=== PATIENT | female | born 1940 | race Asian ===

== ENCOUNTER 2017-06-17 10:46 | Outpatient (CLI) | payer MEDICARE, OTHER ==
--- NOTE | 2017-06-20 16:06 | Mammography Report ---
DIGITAL SCREENING MAMMOGRAM: 06/17/2017 CLINICAL INDICATION: A 76-year-old with history of late childbearing, for screening. COMPARISON: 08/2014, 03/2013, 01/2012, 01/2011, 11/2009. TECHNIQUE: Routine CC and MLO projections were obtained of the breasts. FINDINGS: The breasts again demonstrate heterogeneously dense fibroglandular parenchyma bilaterally. Coarse and punctate, typically benign calcifications are present. No suspicious masses, clustered microcalcifications, or regions of architectural distortion are identified. IMPRESSION: BENIGN FINDINGS. RECOMMENDATION: ROUTINE ANNUAL SCREENING UNLESS OTHERWISE CLINICALLY INDICATED. BIRADS CATEGORY 2-BENIGN FINDINGS. STANDARD QUALIFYING STATEMENTS: 1. This examination was reviewed with the aid of Computer-Aided Detection (CAD). 2. A negative or benign imaging report should not delay biopsy if clinically suspicious findings are present. Consider surgical consultation if warranted. More than 5% of cancers are not identified by imaging. 3. Dense breasts may obscure an underlying neoplasm. TD: 06/20/2017 16:05
== END 2017-06-17 10:47 | disposition home or self-care (01) ==
LOC: DI.N 10:46
PROVIDERS: ATTEND Family Medicine
DX: Z12.31 Encounter for screening mammogram for malignant neoplasm of breast (principal)
CPT/HCPCS: 77067

== ENCOUNTER 2017-12-29 09:34 | Outpatient (CLI) | payer MEDICARE, OTHER ==
--- NOTE | 2018-01-02 08:35 | DEXA Report ---
Reason: BONE DISEASE Procedure Date: 12/29/2017 Accession Number: [id number] / [id number] Procedure: DEX - Dexa Spine and/or Hip CPT Code: FULL RESULT: EXAM: Dexa Spine and/or Hip DATE: 12/29/2017 10:26 AM CLINICAL HISTORY: BONE DISEASE TECHNIQUE: Dual energy x-ray absorptiometry (DXA) was performed on a 3Funnel System. Regions measured are the AP Spine, femoral neck, and if needed forearm. COMPARISON: None. In accordance with the International Society for Clinical Densitometry (ISCD) guidelines, data from previous exams may be reanalyzed using current recommendations and techniques. This is done to allow a more accurate basis for comparison with the current study. FINDINGS: The data for the lumbar spine is as follows: BMD (g/cm/cm) T-SCORE Z-SCORE REGION L1 0.942 -1.6 0.8 L2 0.932 -2.2 0.1 L3 0.962 -2.0 0.3 L4 1.204 0.0 2.4 TOTAL 1.024 -1.3 1.0 NOTE: All evaluable vertebrae are used for classification The data for the hip is as follows: BMD (g/cm/cm) T-SCORE Z-SCORE REGION Neck 0.762 -2.0 0.4 TOTAL 0.847 -1.3 1.0 NOTE: The femoral neck or total proximal femur, whichever is lowest, is used for classification. IMPRESSION: THE WHO CLASSIFICATION BASED ON THE INTERNATIONAL REFERENCE STANDARD IS OSTEOPENIA. THE FRACTURE RISK IS INCREASED. RECOMMENDATION: Patients with diagnosis of osteoporosis or osteopenia should have regular bone mineral density assessment. For those eligible for Medicare, routine testing is allowed once every 2 years. Testing frequency can be increased for patients who have rapidly progressing disease or for those who are receiving medical therapy to restore bone mass. COMMENT: World Health Organization (WHO) definitions for osteoporosis and osteopenia: NORMAL BMD: T-score at -1.0 or higher, fracture risk is low OSTEOPENIA BMD: T-score between -1.0 and -2.5, fracture risk is increased. OSTEOPOROSIS BMD: T-score at -2.5 or lower, fracture risk is high. National Osteoporosis Foundation recommends: 1. Obtain adequate dietary calcium (at least 1200 mg per day) and vitamin D (400-800 international units per day). 2. Participate, as appropriate, in regular weightbearing and muscle-strengthening exercise. 3. Avoid tobacco use and reduce alcohol and caffeine intake. 4. For more detailed information see the website at www.NOF.org.
== END 2017-12-29 09:35 | disposition home or self-care (01) ==
LOC: DI 09:34
PROVIDERS: ATTEND Physician Assistant Medical
DX: M85.89 Other specified disorders of bone density and structure, multiple sites (principal)
CPT/HCPCS: 77080

== ENCOUNTER 2018-07-25 09:14 | Outpatient (CLI) | payer MEDICARE, OTHER ==
--- NOTE | 2018-07-26 08:45 | Mammography Report ---
Reason: SCREENING MAMMOGRAM FOR BREAST CANCER Procedure Date: 07/25/2018 Accession Number: [id number] / [id number] Procedure: MGN - Screening Mammo Dig Bilat CPT Code: FULL RESULT: EXAM: Screening Mammo Dig Bilat DATE: 07/25/2018 9:35 AM CLINICAL HISTORY: Screening encounter. History of late childbearing. TECHNIQUE: (B) - Bilateral CC and MLO views were obtained. COMPARISON: 06/17/2017 through 03/09/2013. PARENCHYMAL PATTERN: (D) - The breast(s) demonstrate(s) heterogeneously dense fibroglandular parenchyma. FINDINGS: There are coarse typically benign calcifications and typically benign vascular calcifications. There are no suspicious masses, calcifications, or areas of distortion. IMPRESSION: Benign findings. BI-RADS category 2. RECOMMENDATION: (ANNUAL) - Recommend routine annual screening mammography. BI-RADS CATEGORY: (2) - Benign Findings. STANDARD QUALIFYING STATEMENTS: 1. This examination was not reviewed with the aid of Computer-Aided Detection (CAD). 2. A negative or benign imaging report should not preclude biopsy if clinically suspicious findings are present. 3. Dense breasts may obscure an underlying neoplasm. 4. This examination was reviewed without the aid of 3D breast imaging (tomosynthesis).
== END 2018-07-25 09:15 | disposition home or self-care (01) ==
LOC: DI.N 09:14
PROVIDERS: ATTEND Family Medicine
DX: Z12.31 Encounter for screening mammogram for malignant neoplasm of breast (principal)
CPT/HCPCS: 77067

== ENCOUNTER 2018-08-23 08:00 | Outpatient (CLI) | payer MEDICARE, OTHER | END 2018-08-23 23:59 | disposition home or self-care (01) | LOC: LAB.R 08:00 | PROVIDERS: ATTEND Physician Assistant Medical | DX: N39.0 Urinary tract infection, site not specified (principal) | CPT/HCPCS: 87077; 87086; 87181 ==

== ENCOUNTER 2019-09-24 07:00 | Outpatient (CLI) | payer MEDICARE, OTHER | END 2019-09-24 23:59 | disposition home or self-care (01) | LOC: LAB.R 07:00 | PROVIDERS: ATTEND Physician Assistant Medical | DX: N39.0 Urinary tract infection, site not specified (principal) | CPT/HCPCS: 87086 ==

== ENCOUNTER 2019-10-23 12:31 | Outpatient (CLI) | payer MEDICARE, OTHER ==
--- NOTE | 2019-10-24 09:13 | Mammography Report ---
BILATERAL DIGITAL SCREENING MAMMOGRAM 3D/2D: 10/23/2019 CLINICAL: Routine screening. Comparison is made to exams dated: 06/17/2017 mammogram, 07/25/2018 mammogram, and 08/13/2014 mammogram - [facility]. The tissue of both breasts is heterogeneously dense. This may lower the sensitivity of mammography. No significant masses, calcifications, or other findings are seen in either breast. There has been no significant interval change. IMPRESSION: NEGATIVE There is no mammographic evidence of malignancy. A 1 year screening mammogram is recommended. This exam was interpreted at Station ID: [id number]. NOTE: For mammograms, a report in lay terms will be sent to the patient. Approximately 15% of breast malignancies will not be visualized mammographically. In the management of a palpable breast mass, a negative mammogram must not discourage biopsy of a clinically suspicious lesion. Electronically Signed By: Maria T aiken/tano:10/23/2019 18:10:18 ACR BI-RADS Category 1: Negative 3341F PARENCHYMAL PATTERN: (D) - The breast(s) demonstrate(s) heterogeneously dense fibroglandular nneka bowers. BI-RADS CATEGORY: (1) - 1 RECOMMENDATION: (ANNUAL) - Recommend routine annual screening mammography. [id number] 1 year screening LATERALITY: (B)
== END 2019-10-23 12:32 | disposition home or self-care (01) ==
LOC: DI 12:31
DX: Z12.31 Encounter for screening mammogram for malignant neoplasm of breast (principal)
CPT/HCPCS: 77063; 77067

== ENCOUNTER 2020-02-29 09:15 | Outpatient (CLI) | payer MEDICARE, OTHER ==
[2020-02-29 13:57] LABS: BILIRUBIN,URINE NEGATIVE (NEGATIVE); GLUCOSE, URINE (UA) NEGATIVE (NEGATIVE); KETONES,URINE (UA) NEGATIVE (NEGATIVE); LEUKOCYTE ESTERASE, URINE MODERATE (NEGATIVE); NITRITE,URINE NEGATIVE (NEGATIVE); OCCULT BLOOD,URINE SMALL (NEGATIVE); PH,URINE 6.5 PH (5.0-7.5); PROTEIN,URINE NEGATIVE (NEGATIVE); UROBILINOGEN,URINE 0.2 (NORMAL) E.U./dL (NORMAL)
[2020-02-29 14:00] LABS: CLARITY,URINE HAZY (CLEAR)
[2020-02-29 14:25] LABS: BACTERIA,URINE Few /HPF (None Seen); MUCUS,URINE Few Strands; RBC,URINE 0-5 /HPF (0-5); SQUAMOUS EPITHELIAL CELL,UR FEW Squamous (<= Few)
== END 2020-02-29 23:59 | disposition home or self-care (01) ==
LOC: LAB.R 09:15
PROVIDERS: ATTEND Nurse Practitioner
DX: N30.00 Acute cystitis without hematuria (principal)
CPT/HCPCS: 81001; 81003; 87077; 87086; 87181

== ENCOUNTER 2020-03-27 09:30 | Outpatient (CLI) | payer MEDICARE, OTHER ==
[2020-03-27 15:19] LABS: LEUKOCYTE ESTERASE, URINE MODERATE (NEGATIVE); OCCULT BLOOD,URINE MODERATE (NEGATIVE)
[2020-03-27 16:09] LABS: CLARITY,URINE HAZY (CLEAR)
[2020-03-27 16:10] LABS: BILIRUBIN,URINE NEGATIVE (NEGATIVE); ICTOTEST,URINE NEGATIVE
[2020-03-27 16:11] LABS: AMORPHOUS SEDIMENT,UR Few /LPF; BACTERIA,URINE Rare /HPF (None Seen); SQUAMOUS EPITHELIAL CELL,UR RARE Squamous (<= Few)
== END 2020-03-27 23:59 ==
LOC: LAB.R 09:30
PROVIDERS: ATTEND Family Medicine
DX: N30.00 Acute cystitis without hematuria (principal)
CPT/HCPCS: 81001; 87086

== ENCOUNTER 2020-08-28 09:47 | Outpatient (CLI) | payer MEDICARE, OTHER ==
[2020-08-28 11:56] LABS: CALCIUM 9.5 mg/dL (8.5-10.3); CREATININE 0.6 mg/dL (0.4-1.0); POTASSIUM 3.7 mmol/L (3.5-5.0)
[2020-08-28 12:15] LABS: CREATININE,URINE 160.1 mg/dL; ESTIMATED AVERAGE GLUCOSE 123 mg/dL (70-100); HEMOGLOBIN A1c% 5.9 % (4.27-6.07); MICROALBUM/CREATININE RATIO,UR 46.2 ug/mg (<30.0); MICROALBUMIN,URINE 7.4 mg/dL (0-300.0)
== END 2020-08-28 09:48 | disposition home or self-care (01) ==
LOC: LAB.N 09:47
PROVIDERS: ATTEND Internal Medicine
DX: I10 Essential (primary) hypertension (principal); R73.03 Prediabetes
CPT/HCPCS: 36415; 80048; 82043; 82570; 83036

== ENCOUNTER 2020-09-05 08:00 | Outpatient (CLI) | payer MEDICARE, OTHER | END 2020-09-05 23:59 | disposition home or self-care (01) | LOC: LAB.N 08:00 | PROVIDERS: ATTEND Family Medicine | DX: N39.0 Urinary tract infection, site not specified (principal) | CPT/HCPCS: 87086 ==

== ENCOUNTER 2021-02-20 08:37 | Outpatient (CLI) | payer MEDICARE, OTHER ==
--- NOTE | 2021-02-23 15:27 | Mammography Report ---
BILATERAL DIGITAL SCREENING MAMMOGRAM 3D/2D: 02/20/2021 CLINICAL: Routine screening. Comparison is made to exams dated: 10/23/2019 mammogram, 07/25/2018 mammogram, and 06/17/2017 mammogram - [facility]. The tissue of both breasts is heterogeneously dense. This may lower the sensitivity of mammography. No significant masses, calcifications, or other findings are seen in either breast. There has been no significant interval change. IMPRESSION: NEGATIVE There is no mammographic evidence of malignancy. A 1 year screening mammogram is recommended. This exam was interpreted at Station ID: [id number]. NOTE: For mammograms, a report in lay terms will be sent to the patient. Approximately 15% of breast malignancies will not be visualized mammographically. In the management of a palpable breast mass, a negative mammogram must not discourage biopsy of a clinically suspicious lesion. Electronically Signed By: Raphael Baugh M.D. ar/[email or web address]:02/20/2021 10:04:23 ACR BI-RADS Category 1: Negative 3341F PARENCHYMAL PATTERN: (D) - The breast(s) demonstrate(s) heterogeneously dense fibroglandular nneka bowers. BI-RADS CATEGORY: (1) - 1 RECOMMENDATION: (ANNUAL) - Recommend routine annual screening mammography. [id number] 1 year screening LATERALITY: (B)
== END 2021-02-20 08:38 | disposition home or self-care (01) ==
LOC: DI 08:37
PROVIDERS: ATTEND Internal Medicine
DX: Z12.31 Encounter for screening mammogram for malignant neoplasm of breast (principal)

== ENCOUNTER 2021-02-20 08:40 | Outpatient (CLI) | payer MEDICARE, OTHER ==
--- NOTE | 2021-02-20 11:30 | DEXA Report ---
PROCEDURE: Dexa Spine and/or Hip INDICATIONS: OSTEOPOROSIS TECHNIQUE: Dual energy x-ray absorptiometry (DXA) was performed on a [employer] System. Regions measur ed are the AP Spine, femoral neck, and if needed forearm. COMPARISON: None. FINDINGS: Lumbar Spine: Bone Mineral Density 1.029 g/cm/cm,T score -1.3, osteopenia Left Femoral Neck: Bone Mineral Density 0.871 g/cm/cm, T score -1.1, osteopenia (T score greater or equal to -1.0: NORMAL) (T score from -1.1 to -2.4: OSTEOPENIA) (T score less than or equal to -2.5 to: OSTEOPOROSIS) Impression: Osteopenia Patients with diagnosis of osteoporosis or osteopenia should have regular bone mineral density assess ment. For those eligible for Medicare, routine testing is allowed once every 2 years. Testing frequ ency can be increased for patients who have rapidly progressing disease or for those who are receivin g medical therapy to restore bone mass. Reviewed by: Kareem Waller MD on 02/20/2021 11:28 AM PST Approved by: Kareem Waller MD on 02/20/2021 11:28 AM PST Station ID: [id number]
== END 2021-02-20 08:41 | disposition home or self-care (01) ==
LOC: DI 08:40
PROVIDERS: ATTEND Internal Medicine
DX: M85.89 Other specified disorders of bone density and structure, multiple sites (principal)

== ENCOUNTER 2021-04-06 08:00 | Outpatient (CLI) | payer MEDICARE, OTHER | END 2021-04-06 23:59 | LOC: LAB 08:00 | PROVIDERS: ATTEND Physician Assistant | DX: R05.8 Other specified cough (principal); R07.0 Pain in throat; Z20.822 Contact with and (suspected) exposure to COVID-19 ==

== ENCOUNTER 2021-06-26 10:55 | Outpatient (CLI) | payer MEDICARE, OTHER ==
[2021-06-26 17:52] LABS: BASOPHILS % (AUTO) 0.7 %; EOSINOPHILS % (AUTO) 0.5 %; HCT - HEMATOCRIT 38.1 % (37.0-47.0); HGB - HEMOGLOBIN 12.6 g/dL (12.0-16.0); LYMPHOCYTES # (AUTO) 1.4 10^3/uL (1.5-3.5); LYMPHOCYTES % (AUTO) 24.3 %; MEAN CORPUSCULAR HGB CONC 33.1 g/dL (32.0-36.0); MEAN CORPUSCULAR VOLUME 87.8 fL (81.0-99.0); MEAN PLATELET VOLUME 11.2 fL (7.9-10.8); MONOCYTES # (AUTO) 0.4 10^3/uL (0.0-1.0); MONOCYTES % (AUTO) 6.9 %; NEUTROPHILS % (AUTO) 67.4 %; PLT - PLATELET COUNT 265 10^3/uL (130-450); RED BLOOD COUNT 4.34 10^6/uL (4.20-5.40); WHITE BLOOD COUNT 5.9 x10^3/uL (4.8-10.8)
[2021-06-26 18:59] LABS: ALBUMIN 4.3 g/dL (3.2-5.5); ALBUMIN/GLOBULIN RATIO 1.4 (1.0-2.2); ALKALINE PHOSPHATASE 52 IU/L (42-121); ALT ALANINE AMINOTRANSFERASE < 10 IU/L (10-60); AST ASPARTATE AMINOTRANSFERASE 19 IU/L (10-42); BILIRUBIN,TOTAL 0.9 mg/dL (0.2-1.0); BUN - BLOOD UREA NITROGEN 16 mg/dL (6-20); CALCIUM 9.6 mg/dL (8.5-10.3); CARBON DIOXIDE - CO2 25 mmol/L (21-32); CHLORIDE 104 mmol/L (101-111); CREATININE 0.6 mg/dL (0.4-1.0); GFR - MDRD 96 (>89); GLUCOSE 101 mg/dL (70-100); POTASSIUM 3.8 mmol/L (3.5-5.0); SODIUM 138 mmol/L (135-145); TOTAL PROTEIN 7.4 g/dL (6.7-8.2)
[2021-06-26 19:15] LABS: THYROID STIMULATING HORMONE 0.67 uIU/mL (0.34-5.60)
== END 2021-06-26 10:56 | disposition home or self-care (01) ==
LOC: LAB.N 10:55
PROVIDERS: ATTEND Nurse Practitioner Family
DX: I10 Essential (primary) hypertension (principal); R42 Dizziness and giddiness
CPT/HCPCS: 36415; 80053; 84443; 85025

== ENCOUNTER 2021-07-08 10:36 | Outpatient (CLI) | payer MEDICARE, OTHER ==
[2021-07-08 18:11] LABS: BASOPHILS # (AUTO) 0.1 10^3/uL (0.0-0.1); BASOPHILS % (AUTO) 0.8 %; EOSINOPHILS # (AUTO) 0.1 10^3/uL (0.0-0.7); EOSINOPHILS % (AUTO) 0.8 %; HCT - HEMATOCRIT 38.5 % (37.0-47.0); HGB - HEMOGLOBIN 12.2 g/dL (12.0-16.0); LYMPHOCYTES # (AUTO) 1.6 10^3/uL (1.5-3.5); LYMPHOCYTES % (AUTO) 24.8 %; MEAN CORPUSCULAR HEMOGLOBIN 28.2 pg (27.0-31.0); MEAN CORPUSCULAR HGB CONC 31.7 g/dL (32.0-36.0); MEAN CORPUSCULAR VOLUME 88.9 fL (81.0-99.0); MEAN PLATELET VOLUME 11.3 fL (7.9-10.8); MONOCYTES # (AUTO) 0.5 10^3/uL (0.0-1.0); MONOCYTES % (AUTO) 7.1 %; NEUTROPHILS # (AUTO) 4.3 10^3/uL (1.5-6.6); NEUTROPHILS % (AUTO) 66.2 %; PLT - PLATELET COUNT 257 10^3/uL (130-450); RED BLOOD COUNT 4.33 10^6/uL (4.20-5.40); RED CELL DISTRIBUTION WIDTH 14.1 % (12.0-15.0); WHITE BLOOD COUNT 6.5 x10^3/uL (4.8-10.8)
[2021-07-08 18:43] LABS: ALBUMIN 4.2 g/dL (3.2-5.5); ALBUMIN/GLOBULIN RATIO 1.4 (1.0-2.2); ALKALINE PHOSPHATASE 55 IU/L (42-121); ALT ALANINE AMINOTRANSFERASE < 10 IU/L (10-60); AST ASPARTATE AMINOTRANSFERASE 20 IU/L (10-42); BILIRUBIN,TOTAL 0.4 mg/dL (0.2-1.0); BUN - BLOOD UREA NITROGEN 20 mg/dL (6-20); CALCIUM 9.7 mg/dL (8.5-10.3); CARBON DIOXIDE - CO2 25 mmol/L (21-32); CHLORIDE 104 mmol/L (101-111); CHOL/HDL RATIO 2.5 (<4.4); CHOLESTEROL 177 mg/dL; CREATININE 0.6 mg/dL (0.4-1.0); GFR - MDRD 96 (>89); GLUCOSE 109 mg/dL (70-100); HDL CHOLESTEROL 72 mg/dL; LDL CHOLESTEROL,CALCULATED 84 mg/dL; LDL/HDL RATIO 1.2 (<4.4); POTASSIUM 3.9 mmol/L (3.5-5.0); SODIUM 137 mmol/L (135-145); TOTAL PROTEIN 7.3 g/dL (6.7-8.2); TRIGLYCERIDES 104 mg/dL; VLDL CHOLESTEROL 21 mg/dL
[2021-07-08 18:57] LABS: THYROID STIMULATING HORMONE 0.48 uIU/mL (0.34-5.60)
== END 2021-07-08 10:37 | disposition home or self-care (01) ==
LOC: LAB.N 10:36
PROVIDERS: ATTEND Nurse Practitioner Family
DX: I10 Essential (primary) hypertension (principal); E78.5 Hyperlipidemia, unspecified; R42 Dizziness and giddiness
CPT/HCPCS: 36415; 80053; 80061; 83721; 84443; 85025

== ENCOUNTER 2021-07-22 08:00 | Outpatient (CLI) | payer MEDICARE, OTHER | END 2021-07-22 23:59 | disposition home or self-care (01) | LOC: LAB.N 08:00 | PROVIDERS: ATTEND Physician Assistant | DX: J06.9 Acute upper respiratory infection, unspecified (principal); Z20.822 Contact with and (suspected) exposure to COVID-19 ==

== ENCOUNTER 2021-07-29 08:00 | Outpatient (CLI) | payer MEDICARE, OTHER ==
[2021-07-29 18:10] LABS: BILIRUBIN,URINE NEGATIVE (NEGATIVE); GLUCOSE, URINE (UA) NEGATIVE (NEGATIVE); KETONES,URINE (UA) NEGATIVE (NEGATIVE); LEUKOCYTE ESTERASE, URINE LARGE (NEGATIVE); NITRITE,URINE POSITIVE (NEGATIVE); OCCULT BLOOD,URINE SMALL (NEGATIVE); PROTEIN,URINE NEGATIVE (NEGATIVE); UROBILINOGEN,URINE 0.2 (NORMAL) E.U./dL (NORMAL)
[2021-07-29 18:11] LABS: CLARITY,URINE CLEAR (CLEAR)
[2021-07-29 18:32] LABS: BACTERIA,URINE Few /HPF (None Seen); SQUAMOUS EPITHELIAL CELL,UR FEW Squamous (<= Few); WBC CLUMPS,URINE PRESENT; WBC,URINE >25 /HPF (0-5)
== END 2021-07-29 08:01 | disposition home or self-care (01) ==
LOC: LAB.N 08:00
PROVIDERS: ATTEND Internal Medicine
DX: Z87.440 Personal history of urinary (tract) infections (principal)
CPT/HCPCS: 81001; 87077; 87086; 87181

== ENCOUNTER 2021-09-29 10:52 | Outpatient (CLI) | payer MEDICARE, OTHER ==
--- NOTE | 2021-09-29 16:01 | XRAY Report ---
PROCEDURE: Calcaneus RT INDICATIONS: R ACHILLES TENDINITIS TECHNIQUE: Two views of the calcaneus were acquired. COMPARISON: None FINDINGS: Bones: No fractures or dislocations. No suspicious bony lesions. Dorsal calcaneal bone spurs. Soft tissues: No suspicious calcifications. Achilles tendon is thickened. IMPRESSION: Calcaneal bone spurs. Visualized Achilles tendon is thickened suggesting chronic tendinitis. Reviewed by: Kiara Frazier MD, PhD on 09/29/2021 3:59 PM PDT Approved by: Kiara Frazier MD, PhD on 09/29/2021 3:59 PM PDT Station ID: [id number]
== END 2021-09-29 23:59 | disposition home or self-care (01) ==
LOC: DI.N 10:52
PROVIDERS: ATTEND Physician Assistant Medical
DX: M76.61 Achilles tendinitis, right leg (principal); M77.31 Calcaneal spur, right foot

== ENCOUNTER 2021-12-10 10:30 | Outpatient (CLI) | payer MEDICARE, OTHER ==
[2021-12-18] MEDS ORDERED: FAMOTIDINE 20 MG TABLET ONE (09:24)
[2021-12-18] MEDS ORDERED: DEXAMETHASONE 20 MG/5 ML VIAL ONE (09:24)
[2021-12-18] MEDS ORDERED: CETIRIZINE 10 MG TABLET ONE (09:24)
[2021-12-18] MEDS ORDERED: diphenhydrAMINE INJ 50 MG/ML VIAL ONE (09:24)
[2021-12-18] MEDS ORDERED: SODIUM CHLORIDE 0.9% 0 ML IV ONE (09:24)
== END 2021-12-10 23:59 | disposition home or self-care (01) ==
LOC: MAC.MOP 10:30
PROVIDERS: ATTEND Internal Medicine
DX: R00.1 Bradycardia, unspecified (principal); I47.1 Supraventricular tachycardia; I49.1 Atrial premature depolarization; I49.3 Ventricular premature depolarization
CPT/HCPCS: 93244

== ENCOUNTER 2022-06-22 07:17 | Outpatient (CLI) | payer MEDICARE, OTHER ==
[2022-06-22 12:06] LABS: BASOPHILS % (AUTO) 0.6 %; EOSINOPHILS # (AUTO) 0.1 10^3/uL (0.0-0.7); EOSINOPHILS % (AUTO) 1.3 %; HCT - HEMATOCRIT 38.3 % (37.0-47.0); HGB - HEMOGLOBIN 12.2 g/dL (12.0-16.0); LYMPHOCYTES # (AUTO) 1.9 10^3/uL (1.5-3.5); LYMPHOCYTES % (AUTO) 29.8 %; MEAN CORPUSCULAR HEMOGLOBIN 28.7 pg (27.0-31.0); MEAN CORPUSCULAR HGB CONC 31.9 g/dL (32.0-36.0); MEAN CORPUSCULAR VOLUME 90.1 fL (81.0-99.0); MEAN PLATELET VOLUME 11.2 fL (7.9-10.8); MONOCYTES # (AUTO) 0.4 10^3/uL (0.0-1.0); MONOCYTES % (AUTO) 6.8 %; NEUTROPHILS # (AUTO) 3.9 10^3/uL (1.5-6.6); PLT - PLATELET COUNT 273 10^3/uL (130-450); RED BLOOD COUNT 4.25 10^6/uL (4.20-5.40); RED CELL DISTRIBUTION WIDTH 14.3 % (12.0-15.0); WHITE BLOOD COUNT 6.4 x10^3/uL (4.8-10.8)
[2022-06-22 12:25] LABS: ALBUMIN 4.1 g/dL (3.2-5.5); ALBUMIN/GLOBULIN RATIO 1.1 (1.0-2.2); ALKALINE PHOSPHATASE 51 IU/L (42-121); ALT ALANINE AMINOTRANSFERASE 12 IU/L (10-60); AST ASPARTATE AMINOTRANSFERASE 27 IU/L (10-42); BILIRUBIN,TOTAL 0.5 mg/dL (0.2-1.0); BUN - BLOOD UREA NITROGEN 19 mg/dL (6-20); CALCIUM 9.2 mg/dL (8.5-10.3); CARBON DIOXIDE - CO2 24 mmol/L (21-32); CHLORIDE 105 mmol/L (101-111); CHOL/HDL RATIO 2.6 (<4.4); CHOLESTEROL 198 mg/dL; CREATININE 0.7 mg/dL (0.4-1.0); GFR - MDRD 80 (>89); GLUCOSE 97 mg/dL (70-100); HDL CHOLESTEROL 77 mg/dL; LDL CHOLESTEROL,CALCULATED 101 mg/dL; LDL/HDL RATIO 1.3 (<4.4); POTASSIUM 3.9 mmol/L (3.5-5.0); SODIUM 140 mmol/L (135-145); TOTAL PROTEIN 7.7 g/dL (6.7-8.2); TRIGLYCERIDES 99 mg/dL; VLDL CHOLESTEROL 20 mg/dL
[2022-06-22 12:26] LABS: ESTIMATED AVERAGE GLUCOSE 123 mg/dL (70-100); HEMOGLOBIN A1c% 5.9 % (4.27-6.07)
[2022-06-22 12:34] LABS: THYROID STIMULATING HORMONE 1.1 uIU/mL (0.34-5.60)
== END 2022-06-22 07:18 | disposition home or self-care (01) ==
LOC: LAB.N 07:17
PROVIDERS: ATTEND Internal Medicine
DX: E78.5 Hyperlipidemia, unspecified (principal); I10 Essential (primary) hypertension; R73.03 Prediabetes; R00.1 Bradycardia, unspecified
CPT/HCPCS: 36415; 80053; 80061; 83036; 83721; 84443; 85025

== ENCOUNTER 2022-08-26 09:33 | Outpatient (CLI) | payer MEDICARE, OTHER | END 2022-08-26 09:34 | disposition home or self-care (01) | LOC: MAC.MOP 09:33 | PROVIDERS: ATTEND Nurse Practitioner Family | DX: R42 Dizziness and giddiness (principal); R03.0 Elevated blood-pressure reading, without diagnosis of hypertension; R00.1 Bradycardia, unspecified | CPT/HCPCS: 93246 ==

== ENCOUNTER 2022-09-15 13:28 | Outpatient (CLI) | payer MEDICARE, OTHER ==
--- NOTE | 2022-09-16 12:41 | XRAY Report ---
PROCEDURE: Wrist 3 View RT INDICATIONS: WRIST PAIN RIGHT TECHNIQUE: 3 views of the wrist were acquired. COMPARISON: None. FINDINGS: Bones: No fractures or dislocations. No suspicious bony lesions. Corticated ossicles adjacent to th e ulnar styloid likely sequelae of old injury. Degenerative joint disease, most severe and moderate a t the triscaphe joint. Soft tissues: Triangular fibrocartilage calcification. Soft tissue swelling around wrist. IMPRESSION: 1. Moderate degenerative joint disease. 2. Sequelae of old injury in the ulnar styloid. 3. Triangular fibrocartilage calcification. Recommend MR wrist arthrogram for further evaluation to a ssess triangular fibrocartilage tear. Reviewed by: Latha Ellsworth MD on 09/16/2022 12:40 PM PDT Approved by: Latha Ellsworth MD on 09/16/2022 12:40 PM PDT Station ID: [id number]
== END 2022-09-15 13:29 | disposition home or self-care (01) ==
LOC: DI.N 13:28
PROVIDERS: ATTEND Physician Assistant
DX: M19.031 Primary osteoarthritis, right wrist (principal); R93.6 Abnormal findings on diagnostic imaging of limbs; R93.89 Abnormal findings on diagnostic imaging of other specified body structures
CPT/HCPCS: 36415; 84550

== ENCOUNTER 2022-09-15 13:42 | Outpatient (CLI) | payer MEDICARE, OTHER | END 2022-09-15 13:43 | disposition home or self-care (01) | LOC: LAB.N 13:42 | PROVIDERS: ATTEND Physician Assistant | DX: M25.531 Pain in right wrist (principal) | CPT/HCPCS: 36415; 84550 ==

== ENCOUNTER 2022-09-18 10:30 | Outpatient (CLI) | payer MEDICARE, OTHER | END 2022-09-18 10:31 | disposition home or self-care (01) | LOC: MAC.INF 10:30 | PROVIDERS: ATTEND Internal Medicine | DX: R00.1 Bradycardia, unspecified (principal); I47.1 Supraventricular tachycardia; I45.5 Other specified heart block | CPT/HCPCS: 93248 ==

== ENCOUNTER 2022-10-06 11:54 | Outpatient (CLI) | payer MEDICARE, OTHER ==
[~2022-10-06 11:54] MED LIST: GADOBUTROL 7.5 MMOL/7.5 ML VIAL ONE; LIDOCAINE-MPF 1% 5 ML VIAL ONE; iohexoL-240 10 ML VIAL IVP ONE
[2022-10-06] MEDS: GADOBUTROL 7.5 MMOL/7.5 ML VIAL IVP ONE (13:44)
[2022-10-06] MEDS: iohexoL-240 10 ML VIAL IVP ONE (13:44)
[2022-10-06] MEDS: LIDOCAINE-MPF 1% 5 ML VIAL TD ONE (13:45)
--- NOTE | 2022-10-06 16:54 | XRAY Report ---
PROCEDURE: Arthrogram Needle Placement CLINICAL INFORMATION: Right wrist pain. COMPARISON STUDY: None TECHNIQUE: The risks, benefits, and alternatives of arthrography for injection of gadolinium for MRI, including the risks of bleeding, infection, and joint damage, were discussed with the patient and the patient s igned informed consent. The right wrist was placed prone on the fluoroscopy table and prepped and brenden ped in usual sterile fashion. Using local anesthesia and sterile technique the radiocarpal joint was accessed using a 25 gauge needle. Approximately 3 ml of the following mixture was injected: 5 ml sali ne, 5 ml Ultravist 300, and 0.2 ml Dotarem. The needle was withdrawn. The wrist joint was placed thro ugh a full range of motion, as tolerated, and cine and/or spot films were obtained. The patient joselin ated the procedure well. There were no complications. Fluoroscopy time: Less than 1 minute FINDINGS: Fluoroscopic images demonstrate intra-articular location of contrast. No contrast extension to the in tercarpal space is seen. IMPRESSION: 1. Successful intra-articular injection of gadolinium for MRI. Reviewed by: Eduardo Lam on 10/06/2022 4:53 PM PDT Approved by: Eduardo Lam on 10/06/2022 4:53 PM PDT Station ID: [id number]
--- NOTE | 2022-10-06 20:25 | MRI Report ---
PROCEDURE: ARTHROGRAM WRIST - RT INDICATIONS: RIGHT WRIST PAIN TECHNIQUE: After the administration of 3-4 mL of dilute intra-articular Gadolinium contrast into the radiocarpal compartment, coronal T1 spin echo with fat saturation and T2 fast spin echo with fat saturation, axi al T1 spin echo through the wrist. The patient was unable to tolerate further imaging. COMPARISON: Wrist radiograph dated 09/15/2022. FINDINGS: Image quality: Limited due to limited sequences obtained. Bones and cartilage: Osteoarthritic changes are noted throughout wrist joints. No gross marrow edema. No acute fracture or dislocation. Nonspecific intraosseous cyst formation throughout carpal bones ar e noted. No gross MR evidence of osteonecrosis. Carpal ligaments: The scapholunate and lunotriquetral ligaments appear intact, without gadolinium ex travasation into the mid-carpal compartment. The radioscaphocapitate and radiolunotriquetral ligamen ts appear intact. The deltoid ligament and short radiolunate ligament also appear normal. Dorsally, the radioscaphotriquetral ligament appears intact where visualized. Triangular fibrocartilage complex: There is suggestion of triangular fibrocartilage tear near its uln ar insertion with gadolinium extravasation into the distal radioulnar joint. The adjacent meniscal h omolog appears normal. The extensor carpi ulnaris tendon appears mildly thickened with intrasubstanc e T2 hyperintense signal at the level of radial styloid and proximal carpal row. Tendons and soft tissues: The carpal tunnel structures appear normal, including the median nerve. T he ulnar nerve appears normal within Guyon's canal. All six extensor tendon compartments demonstrate normal morphology, without pathologic tendon sheath fluid. No soft tissue ganglion cysts. IMPRESSION: 1. Limited study due to limited sequences obtained. 2. Osteoarthritic changes throughout wrist joints. No fracture or dislocation. No gross avascular nec rosis. 3. Scapholunate and lunotriquetral ligaments are grossly intact. 4. Suggestion of triangular fibrocartilage tear near its ulnar insertion with gadolinium extravasatio n into the distal radioulnar joint. 4. Mild tendinosis and low-grade intrasubstance partial thickness tear involving extensor carpi ulnar is tendon at the level of ulnar styloid and proximal carpal bones. Reviewed by: Navin Gr MD on 10/06/2022 8:24 PM PDT Approved by: Navin Gr MD on 10/06/2022 8:24 PM PDT Station ID: [id number]
== END 2022-10-06 11:55 | disposition home or self-care (01) ==
LOC: DI 11:54
PROVIDERS: ATTEND Family Medicine
DX: M19.031 Primary osteoarthritis, right wrist (principal); S66.821A Laceration of other specified muscles, fascia and tendons at wrist and hand level, right hand, initial encounter
CPT/HCPCS: 25246; 73222; 77002; A9585; Q9966

== ENCOUNTER 2022-11-10 08:00 | Outpatient (CLI) | payer MEDICARE, OTHER | END 2022-11-10 23:59 | disposition home or self-care (01) | LOC: LAB.N 08:00 | PROVIDERS: ATTEND Family Medicine | DX: U07.1 COVID-19 (principal) ==

== ENCOUNTER 2022-11-16 08:13 | Outpatient (CLI) | payer MEDICARE, OTHER ==
[2022-11-16 12:33] LABS: CALCIUM 9.8 mg/dL (8.5-10.3); CREATININE 0.6 mg/dL (0.6-1.3); POTASSIUM 3.5 mmol/L (3.5-4.5)
[2022-11-16 12:34] LABS: ESTIMATED AVERAGE GLUCOSE 120 mg/dL (70-100); HEMOGLOBIN A1c% 5.8 % (4.27-6.07)
== END 2022-11-16 08:14 | disposition home or self-care (01) ==
LOC: LAB.N 08:13
PROVIDERS: ATTEND Internal Medicine
DX: R73.03 Prediabetes (principal)
CPT/HCPCS: 36415; 80048; 83036

== ENCOUNTER 2023-06-11 09:37 | Outpatient (CLI) | payer MEDICARE, OTHER ==
[2023-06-11 19:05] LABS: BASOPHILS % (AUTO) 0.7 %; EOSINOPHILS % (AUTO) 0.5 %; HGB - HEMOGLOBIN 11.6 g/dL (12.0-16.0); LYMPHOCYTES # (AUTO) 1.5 10^3/uL (1.5-3.5); LYMPHOCYTES % (AUTO) 25.5 %; MEAN CORPUSCULAR HEMOGLOBIN 26.9 pg (27.0-31.0); MEAN CORPUSCULAR HGB CONC 29.7 g/dL (32.0-36.0); MEAN CORPUSCULAR VOLUME 90.5 fL (81.0-99.0); MEAN PLATELET VOLUME 11.4 fL (7.9-10.8); MONOCYTES # (AUTO) 0.4 10^3/uL (0.0-1.0); MONOCYTES % (AUTO) 6.1 %; NEUTROPHILS # (AUTO) 3.8 10^3/uL (1.5-6.6); PLT - PLATELET COUNT 243 10^3/uL (130-450); RED BLOOD COUNT 4.31 10^6/uL (4.20-5.40); RED CELL DISTRIBUTION WIDTH 15.1 % (12.0-15.0); WHITE BLOOD COUNT 5.7 x10^3/uL (4.8-10.8)
[2023-06-11 19:08] LABS: ESTIMATED AVERAGE GLUCOSE 123 mg/dL (70-100); HEMOGLOBIN A1c% 5.9 % (4.27-6.07)
[2023-06-11 19:24] LABS: ALBUMIN 4.4 g/dL (3.2-5.5); ALBUMIN/GLOBULIN RATIO 1.4 (1.0-2.2); ALKALINE PHOSPHATASE 46 IU/L (42-121); ALT ALANINE AMINOTRANSFERASE 8 IU/L (10-60); AST ASPARTATE AMINOTRANSFERASE 19 IU/L (10-42); BILIRUBIN,TOTAL 0.5 mg/dL (0.2-1.0); BUN - BLOOD UREA NITROGEN 24 mg/dL (6-20); CALCIUM 9.7 mg/dL (8.5-10.3); CARBON DIOXIDE - CO2 26 mmol/L (21-32); CHLORIDE 108 mmol/L (101-111); CHOLESTEROL 150 mg/dL; CREATININE 0.5 mg/dL (0.6-1.3); GFR - MDRD 118 (>89); GLUCOSE 95 mg/dL (74-104); HDL CHOLESTEROL 75 mg/dL; LDL CHOLESTEROL,CALCULATED 62 mg/dL; LDL/HDL RATIO 0.8 (<4.4); SODIUM 140 mmol/L (135-145); TOTAL PROTEIN 7.5 g/dL (6.4-8.9); TRIGLYCERIDES 65 mg/dL (48-352); VLDL CHOLESTEROL 13 mg/dL
[2023-06-11 19:33] LABS: THYROID STIMULATING HORMONE 0.51 uIU/mL (0.34-5.60)
[2023-06-11 19:34] LABS: CREATININE,URINE 70.8 mg/dL; MICROALBUM/CREATININE RATIO,UR 53.7 ug/mg (<30.0); MICROALBUMIN,URINE 3.8 mg/dL
== END 2023-06-11 09:38 | disposition home or self-care (01) ==
LOC: LAB.N 09:37
PROVIDERS: ATTEND Internal Medicine
DX: R73.03 Prediabetes (principal); E78.5 Hyperlipidemia, unspecified; R00.1 Bradycardia, unspecified; I10 Essential (primary) hypertension
CPT/HCPCS: 36415; 80053; 80061; 82043; 82570; 83036; 83721; 84443; 85025

== ENCOUNTER 2023-08-23 08:48 | Emergency (ER) | payer OTHER, MEDICARE ==
[2023-08-23 09:13] VITALS: O2SAT 98
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
[2023-08-23] MEDS: ACETAMINOPHEN 325 MG TABLET PO STA (10:26)
[2023-08-23] MEDS: NAPROXEN 250 MG TABLET PO STA (10:26)
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
[2023-08-23 11:45] VITALS: BP 154/56
== END 2023-08-23 11:38 | disposition home or self-care (01) ==
LOC: ED 08:48
DX: S39.012A Strain of muscle, fascia and tendon of lower back, initial encounter (principal); V43.52XA Car driver injured in collision with other type car in traffic accident, initial encounter; Y92.410 Unspecified street and highway as the place of occurrence of the external cause; I10 Essential (primary) hypertension; E78.00 Pure hypercholesterolemia, unspecified; Z79.899 Other long term (current) drug therapy
CPT/HCPCS: 72125; 72128; 72131; 99284; A9270